=== PATIENT | female | born 1950 | race Caucasian/White ===

== ENCOUNTER 2019-04-02 09:21 | Emergency (ER) | payer MEDICARE, MEDICAID ==
[~2019-04-02] VITALS: Ht 165.1 cm; Wt 80.0 kg
[2019-04-02] MEDS ORDERED: ALPR1TAB2 PO (09:38)
[2019-04-02] MEDS ORDERED: ALBUTEROL/IPRATROPIUM 2.5MG/0.5MG, 3 ML NPPB ONE (10:00)
[2019-04-02] MEDS ORDERED: ALBUTEROL/IPRATROPIUM 2.5MG/0.5MG, 3 ML ONE (10:06)
[2019-04-02] MEDS ORDERED: ACET1TAB64 PO (10:11)
[2019-04-02] MEDS ORDERED: CITA20TA6 PO (10:12)
[2019-04-02] MEDS ORDERED: ALBU90AE INH (10:12)
[2019-04-02] MEDS ORDERED: BUDE10.22 INH (10:13)
[2019-04-02] MEDS ORDERED: METO-93 PO (10:13)
[2019-04-02] MEDS ORDERED: ALPR-475 PO (10:14)
[2019-04-02 10:28] LABS: BASOPHILS # (AUTO) 0.04 x10^3/uL (0-0.1); BASOPHILS % (AUTO) 0 % (0-1); EOSINOPHILS # (AUTO) 0.09 x10^3/uL (0-0.4); EOSINOPHILS % (AUTO) 1 % (1-7); LYMPHOCYTES # (AUTO) 0.92 x10^3/uL (1-3.4); LYMPHOCYTES % (AUTO) 10 % (22-44); MD NO; MEAN CORPUSCULAR HEMOGLOBIN 28.7 pg (27.0-34.8); MEAN CORPUSCULAR HGB CONC 32.6 g/dL (32.4-35.8); MEAN CORPUSCULAR VOLUME 88.2 fL (80-100); MONOCYTES # (AUTO) 0.76 x10^3/uL (0.2-0.8); MONOCYTES % (AUTO) 8 % (2-9); NEUTROPHILS % (AUTO) 81 % (42-75); PLATELET COUNT 253 x10^3/uL (130-400); RED BLOOD COUNT 4.71 x10^6/uL (3.82-5.3); RED CELL DISTRIBUTION WIDTH 14.6 % (9.6-15.2)
[2019-04-02 10:36] LABS: ALANINE AMINOTRANSFERASE 36 U/L (12-78); ALBUMIN 3.1 g/dL (3.4-5.0); ANION GAP 11 mmol/L (5-15); CALCIUM 8.5 mg/dL (8.5-10.1); CHLORIDE 106 mmol/L (98-107); CREATININE 0.71 mg/dL (0.55-1.02)
[2019-04-02 10:39] LABS: ALKALINE PHOSPHATASE 67 U/L (45-117); BILIRUBIN,TOTAL 0.6 mg/dL (0.2-1.0); TOTAL PROTEIN 7.1 g/dL (6.4-8.2)
[2019-04-02] MEDS ORDERED: APAP/CODEINE 300/30MG TABLET PO PRN (11:00)
[2019-04-02] MEDS ORDERED: POTASSIUM CHLORIDE 20 MEQ TAB.ER.PRT PO ONE (11:30)
[2019-04-02 12:38] LABS: CLOSTRIDIUM DIFFICILE ANTIGEN NEGATIVE; CLOSTRIDIUM DIFFICILE TOXIN NEGATIVE (Negative)
[2019-04-02] MEDS ORDERED: POTASSIUM CHLORIDE 20 MEQ TAB.ER.PRT ONE (12:41)
[2019-04-02 12:44] VITALS: BP 127/64
--- NOTE | 2019-04-02 13:53 | NUR ---
VEGITARIAN MEAL TRAY PROVIDED. PT SITTING UP IN BED EATING W/O DIFFICULTY. 2ND MEAL TRAY ORDERED FOR TOGO PT STATED THAT SHE HAS NO FOOD IN HER MOTEL ROOM.
--- NOTE | 2019-04-02 14:42 | NUR ---
Patient/Caregiver given discharge instructions and they have confirmed that they understand the instructions. Patient ambulatory with steady gait. Paient fed prior to discharge.
== END 2019-04-02 14:44 | disposition home or self-care (01) ==
LOC: ED 14:36
DX: R19.7 Diarrhea, unspecified (principal); R05 Cough; J44.9 Chronic obstructive pulmonary disease, unspecified; I10 Essential (primary) hypertension; F17.200 Nicotine dependence, unspecified, uncomplicated
CPT/HCPCS: 36415; 71045; 80053; 83690; 83735; 85025; 87324; 94640; 99284; J7620

== ENCOUNTER 2019-05-01 14:21 | Observation (INO) | payer MEDICARE, MEDICAID ==
[~2019-05-01] VITALS: Ht 165.1 cm; Wt 76.8 kg
[~2019-05-01 14:21] MED LIST: ACET1TAB64 PO; ALBU90AE INH; ALPR0.5T7 PO; ALPR1TAB2 PO; ASPI-515 PO; ATOR40TA78 PO; BUDE10.22 INH; CITA20TA6 PO; METF500T17 PO; METO-93 PO; PRED5TAB PO
--- NOTE | 2019-05-01 14:31 | NUR ---
pt bib remsa to ed for general weakness. pt was discharged from [facility] for pna this am and went back to senior living. pt was unable to fill prescriptions (that did not include abx). per ems, senior living staff believed pt was too weak and lethargic to take care of there, so ems was called and pt was transferred back to ed. pt connected to monitors. vss. Dr. Rausch to bs for assessment. awaiting orders.
[2019-05-01] MEDS ORDERED: ALBUTEROL SULFATE 2.5 MG/3 ML NPPB ONE (15:30)
[2019-05-01] MEDS ORDERED: methylPREDNISolone SOD SUCC 125 MG/2 ML IVP ONE (15:30)
[2019-05-01] MEDS ORDERED: SODIUM CHLORIDE FLUSH 10ML SYR IVF ONE (15:30)
[2019-05-01] MEDS ORDERED: ALBUTEROL SULFATE 2.5MG/0.5ML ONE (15:31)
[2019-05-01 15:46] LABS: BASOPHILS # (AUTO) 0.12 x10^3/uL (0-0.1); BASOPHILS % (AUTO) 1 % (0-1); EOSINOPHILS # (AUTO) 0.14 x10^3/uL (0-0.4); EOSINOPHILS % (AUTO) 2 % (1-7); LYMPHOCYTES # (AUTO) 1.22 x10^3/uL (1-3.4); LYMPHOCYTES % (AUTO) 14 % (22-44); MD NO; MEAN CORPUSCULAR HEMOGLOBIN 27.9 pg (27.0-34.8); MEAN CORPUSCULAR HGB CONC 31.7 g/dL (32.4-35.8); MEAN PLATELET VOLUME 7.9 fL (7.4-10.4); MONOCYTES % (AUTO) 8 % (2-9); NEUTROPHILS # (AUTO) 6.72 x10^3/uL (1.8-6.8); NEUTROPHILS % (AUTO) 76 % (42-75); PLATELET COUNT 202 x10^3/uL (130-400); RED CELL DISTRIBUTION WIDTH 15.1 % (9.6-15.2)
[2019-05-01 15:52] LABS: ALBUMIN 3.3 g/dL (3.4-5.0); ANION GAP 9 mmol/L (5-15); CALCIUM 8.9 mg/dL (8.5-10.1); CHLORIDE 107 mmol/L (98-107); CREATININE 0.68 mg/dL (0.55-1.02)
--- NOTE | 2019-05-01 16:15 | NUR ---
Bedside report from Nelda, assumed care. Pt aox4, speaks in full complete sentences, denies pain at this time, PIV placed by EMS tech, no complaints, waiting for room assignment.
[2019-05-01] MEDS ORDERED: methylPREDNISolone SOD SUCC 125 MG/2 ML ONE (16:24)
--- NOTE | 2019-05-01 16:26 | NUR ---
Pt given solumedrol per MD orders, education provided.
[2019-05-01] MEDS ORDERED: ACETAMINOPHEN 500 MG TABLET PO ONE (16:30)
--- NOTE | 2019-05-01 16:33 | NUR ---
Report given to recieving Olena Rosales, tylenol ordered but not given per pt refusal, states anxiety, RN aware.
[2019-05-01 17:09] VITALS: BP 122/87
[2019-05-01] MEDS ORDERED: ONDANSETRON 2MG/ML, 2ML IVPush PRN (18:00)
[2019-05-01] MEDS: ENOXAPARIN 40 MG/0.4 ML SQ SCH (18:06)
[2019-05-01 19:19] VITALS: BP 130/97
[2019-05-01] MEDS: ACETAMINOPHEN 325 MG TABLET PO PRN (22:20)
[2019-05-02 02:05] VITALS: BP 140/89
[2019-05-02 05:28] LABS: CHLORIDE 104 mmol/L (98-107)
[2019-05-02 05:37] LABS: ALANINE AMINOTRANSFERASE 38 U/L (12-78); ALBUMIN 3.5 g/dL (3.4-5.0); ALKALINE PHOSPHATASE 81 U/L (45-117); ANION GAP 7 mmol/L (5-15); BILIRUBIN,TOTAL 0.9 mg/dL (0.2-1.0); CALCIUM 9.4 mg/dL (8.5-10.1); CREATININE 0.72 mg/dL (0.55-1.02); TOTAL PROTEIN 7.5 g/dL (6.4-8.2)
[2019-05-02 05:41] LABS: BASOPHILS % (AUTO) 0 % (0-1); EOSINOPHILS % (AUTO) 0 % (1-7); LYMPHOCYTES # (AUTO) 0.72 x10^3/uL (1-3.4); LYMPHOCYTES % (AUTO) 12 % (22-44); MD NO; MEAN CORPUSCULAR HEMOGLOBIN 28.6 pg (27.0-34.8); MEAN CORPUSCULAR HGB CONC 32.5 g/dL (32.4-35.8); MEAN PLATELET VOLUME 8.6 fL (7.4-10.4); MONOCYTES # (AUTO) 0.09 x10^3/uL (0.2-0.8); MONOCYTES % (AUTO) 1 % (2-9); NEUTROPHILS # (AUTO) 5.13 x10^3/uL (1.8-6.8); NEUTROPHILS % (AUTO) 86 % (42-75); PLATELET COUNT 250 x10^3/uL (130-400); RED BLOOD COUNT 5.01 x10^6/uL (3.82-5.3); RED CELL DISTRIBUTION WIDTH 14.4 % (9.6-15.2)
[2019-05-02 07:53] VITALS: BP 131/89
[2019-05-02] MEDS: ALBUTEROL/IPRATROPIUM 2.5MG/0.5MG, 3 ML NPPB SCH ×2 (09:00→20:49)
[2019-05-02] MEDS: BUDESONIDE 0.5 MG/2 ML INHA NPPB SCH ×2 (09:00→20:49)
[2019-05-02] MEDS: ACETAMINOPHEN 325 MG TABLET PO PRN ×2 (12:16→17:40)
[2019-05-02 13:59] VITALS: BP 120/84
[2019-05-02] MEDS: ENOXAPARIN 40 MG/0.4 ML SQ SCH (17:41)
[2019-05-02 19:15] VITALS: BP 111/79
[2019-05-03 01:46] VITALS: BP 110/77
[2019-05-03] MEDS: ALBUTEROL/IPRATROPIUM 2.5MG/0.5MG, 3 ML NPPB SCH ×3 (06:45→20:59)
[2019-05-03] MEDS: BUDESONIDE 0.5 MG/2 ML INHA NPPB SCH ×3 (06:46→20:59)
[2019-05-03 07:35] VITALS: BP 121/84
[2019-05-03] MEDS: ACETAMINOPHEN 325 MG TABLET PO PRN ×2 (09:34→17:55)
[2019-05-03 13:52] VITALS: BP 118/85
[2019-05-03] MEDS: ENOXAPARIN 40 MG/0.4 ML SQ SCH (17:55)
[2019-05-03 19:33] VITALS: BP 137/87
[2019-05-04 01:02] VITALS: BP 141/88
[2019-05-04] MEDS: ACETAMINOPHEN 325 MG TABLET PO PRN ×4 (06:44→21:31)
[2019-05-04 07:14] VITALS: BP 125/88
[2019-05-04 12:45] VITALS: BP 115/89
[2019-05-04] MEDS: ENOXAPARIN 40 MG/0.4 ML SQ SCH (17:10)
[2019-05-04 18:56] VITALS: BP 147/93
[2019-05-04] MEDS: BUDESONIDE 0.5 MG/2 ML INHA NPPB SCH (19:56)
[2019-05-04] MEDS: ALBUTEROL/IPRATROPIUM 2.5MG/0.5MG, 3 ML NPPB SCH (19:56)
[2019-05-05 01:58] VITALS: BP 144/76
[2019-05-05] MEDS: ACETAMINOPHEN 325 MG TABLET PO PRN ×4 (02:46→21:36)
[2019-05-05 07:19] VITALS: BP 120/87
[2019-05-05] MEDS: BUDESONIDE 0.5 MG/2 ML INHA NPPB SCH ×2 (10:15→21:00)
[2019-05-05] MEDS: ALBUTEROL/IPRATROPIUM 2.5MG/0.5MG, 3 ML NPPB SCH ×2 (10:15→21:00)
[2019-05-05 12:53] VITALS: BP 125/93
[2019-05-05] MEDS: ENOXAPARIN 40 MG/0.4 ML SQ SCH (17:28)
[2019-05-05 19:18] VITALS: BP 120/82
[2019-05-06 01:16] VITALS: BP 116/78
[2019-05-06] MEDS: ACETAMINOPHEN 325 MG TABLET PO PRN ×4 (02:59→20:37)
[2019-05-06] MEDS: BUDESONIDE 0.5 MG/2 ML INHA NPPB SCH ×2 (06:45→21:00)
[2019-05-06] MEDS: ALBUTEROL/IPRATROPIUM 2.5MG/0.5MG, 3 ML NPPB SCH ×2 (06:45→21:00)
[2019-05-06 07:45] VITALS: BP 130/96
[2019-05-06 12:30] VITALS: BP 136/100
[2019-05-06] MEDS: ENOXAPARIN 40 MG/0.4 ML SQ SCH (16:31)
[2019-05-06 19:22] VITALS: BP 137/98
[2019-05-07 01:47] VITALS: BP 129/87
[2019-05-07] MEDS: ALBUTEROL/IPRATROPIUM 2.5MG/0.5MG, 3 ML NPPB SCH ×2 (07:50→20:53)
[2019-05-07] MEDS: BUDESONIDE 0.5 MG/2 ML INHA NPPB SCH ×2 (07:50→20:53)
[2019-05-07] MEDS: ACETAMINOPHEN 325 MG TABLET PO PRN ×3 (08:06→18:38)
[2019-05-07 08:20] VITALS: BP 125/88
[2019-05-07 13:18] VITALS: BP 136/92
[2019-05-07 14:39] VITALS: BP 130/89
[2019-05-07] MEDS: ENOXAPARIN 40 MG/0.4 ML SQ SCH (17:30)
[2019-05-07 19:17] VITALS: BP 141/75
[2019-05-08 01:03] VITALS: BP 112/81
[2019-05-08] MEDS: ACETAMINOPHEN 325 MG TABLET PO PRN ×5 (01:10→20:32)
[2019-05-08 05:15] LABS: ANION GAP 9 mmol/L (5-15); CALCIUM 9.3 mg/dL (8.5-10.1); CHLORIDE 107 mmol/L (98-107)
[2019-05-08 05:17] LABS: CREATININE 0.69 mg/dL (0.55-1.02)
[2019-05-08 07:35] VITALS: BP 118/90
[2019-05-08] MEDS: ALBUTEROL/IPRATROPIUM 2.5MG/0.5MG, 3 ML NPPB SCH ×2 (09:00→19:40)
[2019-05-08] MEDS: BUDESONIDE 0.5 MG/2 ML INHA NPPB SCH ×2 (09:00→19:40)
[2019-05-08 13:39] VITALS: BP 128/92
[2019-05-08] MEDS: ENOXAPARIN 40 MG/0.4 ML SQ SCH (18:48)
[2019-05-08 19:57] VITALS: BP 125/91
[2019-05-08] MEDS: TEMAZEPAM 15 MG CAPSULE PO PRN (22:26)
[2019-05-09] MEDS: ACETAMINOPHEN 325 MG TABLET PO PRN ×4 (00:45→19:36)
[2019-05-09 01:47] VITALS: BP 124/91
[2019-05-09] MEDS: BUDESONIDE 0.5 MG/2 ML INHA NPPB SCH ×3 (07:25→20:06)
[2019-05-09] MEDS: ALBUTEROL/IPRATROPIUM 2.5MG/0.5MG, 3 ML NPPB SCH ×3 (07:25→20:06)
[2019-05-09 07:53] VITALS: BP 122/92
[2019-05-09 12:13] VITALS: BP 129/92
[2019-05-09] MEDS: ENOXAPARIN 40 MG/0.4 ML SQ SCH ×2 (17:15→17:16)
[2019-05-09 19:25] VITALS: BP 130/96
[2019-05-09] MEDS: TEMAZEPAM 15 MG CAPSULE PO PRN (21:52)
[2019-05-10 01:32] VITALS: BP 119/89
[2019-05-10 07:30] VITALS: BP 118/83
[2019-05-10] MEDS: ACETAMINOPHEN 325 MG TABLET PO PRN ×3 (09:52→20:48)
[2019-05-10 12:33] VITALS: BP 137/89
[2019-05-10] MEDS: ENOXAPARIN 40 MG/0.4 ML SQ SCH (17:55)
[2019-05-10] MEDS: BUDESONIDE 0.5 MG/2 ML INHA NPPB SCH (18:42)
[2019-05-10] MEDS: ALBUTEROL/IPRATROPIUM 2.5MG/0.5MG, 3 ML NPPB SCH (18:42)
[2019-05-10 19:25] VITALS: BP 124/92
[2019-05-10] MEDS: TEMAZEPAM 15 MG CAPSULE PO PRN (20:48)
[2019-05-10] MEDS: ONDANSETRON ODT 4 MG PO PRN (20:48)
[2019-05-11 00:32] VITALS: BP 110/79
[2019-05-11 06:56] VITALS: BP 110/77
[2019-05-11] MEDS: ACETAMINOPHEN 325 MG TABLET PO PRN ×4 (07:33→20:11)
[2019-05-11] MEDS: ALBUTEROL/IPRATROPIUM 2.5MG/0.5MG, 3 ML NPPB SCH ×2 (07:56→19:58)
[2019-05-11] MEDS: BUDESONIDE 0.5 MG/2 ML INHA NPPB SCH ×2 (07:56→19:59)
[2019-05-11 12:43] VITALS: BP 130/86
[2019-05-11] MEDS: ONDANSETRON ODT 4 MG PO PRN ×2 (16:10→20:11)
[2019-05-11] MEDS: ENOXAPARIN 40 MG/0.4 ML SQ SCH (16:50)
[2019-05-11 19:17] VITALS: BP 125/92
[2019-05-11] MEDS: TEMAZEPAM 15 MG CAPSULE PO PRN (21:29)
[2019-05-12 02:22] VITALS: BP 121/87
[2019-05-12] MEDS: ACETAMINOPHEN 325 MG TABLET PO PRN ×5 (03:33→20:49)
[2019-05-12 06:59] VITALS: BP 133/87
[2019-05-12] MEDS: BUDESONIDE 0.5 MG/2 ML INHA NPPB SCH ×2 (08:10→18:56)
[2019-05-12] MEDS: ALBUTEROL/IPRATROPIUM 2.5MG/0.5MG, 3 ML NPPB SCH ×2 (08:10→18:56)
[2019-05-12] MEDS: ONDANSETRON ODT 4 MG PO PRN (13:57)
[2019-05-12 14:00] VITALS: BP 126/90
[2019-05-12] MEDS: ENOXAPARIN 40 MG/0.4 ML SQ SCH (16:41)
[2019-05-12 19:20] VITALS: BP 123/92
[2019-05-12] MEDS: TEMAZEPAM 15 MG CAPSULE PO PRN (20:49)
[2019-05-13 02:25] VITALS: BP 126/94
[2019-05-13] MEDS: ALBUTEROL/IPRATROPIUM 2.5MG/0.5MG, 3 ML NPPB SCH ×2 (06:39→20:00)
[2019-05-13] MEDS: BUDESONIDE 0.5 MG/2 ML INHA NPPB SCH ×2 (06:39→20:00)
[2019-05-13 07:15] VITALS: BP 116/82
[2019-05-13] MEDS: ACETAMINOPHEN 325 MG TABLET PO PRN ×4 (08:23→21:21)
[2019-05-13 14:55] VITALS: BP 108/61
[2019-05-13] MEDS: ENOXAPARIN 40 MG/0.4 ML SQ SCH (17:24)
[2019-05-13 19:02] VITALS: BP 132/89
[2019-05-13] MEDS: ONDANSETRON ODT 4 MG PO PRN (19:37)
[2019-05-13] MEDS: TEMAZEPAM 15 MG CAPSULE PO PRN (21:21)
[2019-05-14 01:21] VITALS: BP 99/70
[2019-05-14] MEDS: BUDESONIDE 0.5 MG/2 ML INHA NPPB SCH ×2 (06:30→20:14)
[2019-05-14] MEDS: ALBUTEROL/IPRATROPIUM 2.5MG/0.5MG, 3 ML NPPB SCH ×2 (06:30→20:14)
[2019-05-14] MEDS: ACETAMINOPHEN 325 MG TABLET PO PRN ×4 (07:54→20:56)
[2019-05-14 08:15] VITALS: BP 125/87
[2019-05-14 13:07] VITALS: BP 129/94
[2019-05-14] MEDS: ENOXAPARIN 40 MG/0.4 ML SQ SCH (16:57)
[2019-05-14 19:18] VITALS: BP 118/81
[2019-05-14] MEDS: TEMAZEPAM 15 MG CAPSULE PO PRN (20:55)
[2019-05-15] VITALS (7 sets, daily range): BP systolic 106–169; BP diastolic 76–111
[2019-05-15] MEDS: ACETAMINOPHEN 325 MG TABLET PO PRN (08:56)
[2019-05-15] MEDS: BUDESONIDE 0.5 MG/2 ML INHA NPPB SCH ×2 (09:00→21:20)
[2019-05-15] MEDS: ALBUTEROL/IPRATROPIUM 2.5MG/0.5MG, 3 ML NPPB SCH ×2 (09:00→21:20)
[2019-05-15] MEDS ORDERED: METO-264 PO (09:01)
[2019-05-15] MEDS ORDERED: METOPROLOL TARTRATE 50 MG TABLET PO SCH (09:30)
[2019-05-15] MEDS: APAP/CODEINE 300/30MG TABLET PO PRN ×2 (15:08→21:09)
[2019-05-15] MEDS: ENOXAPARIN 40 MG/0.4 ML SQ SCH (18:09)
[2019-05-15] MEDS: METOPROLOL TARTRATE 50 MG TABLET PO SCH (21:09)
[2019-05-15] MEDS: ZOLPIDEM 5MG TABLET PO PRN (21:44)
[2019-05-16 02:45] VITALS: BP 100/70
[2019-05-16] MEDS: APAP/CODEINE 300/30MG TABLET PO PRN ×3 (04:05→16:58)
[2019-05-16 08:30] VITALS: BP 150/85
[2019-05-16] MEDS: ALBUTEROL/IPRATROPIUM 2.5MG/0.5MG, 3 ML NPPB SCH ×2 (09:00→21:00)
[2019-05-16] MEDS: BUDESONIDE 0.5 MG/2 ML INHA NPPB SCH ×2 (09:00→21:00)
[2019-05-16] MEDS: ONDANSETRON ODT 4 MG PO PRN ×2 (09:26→18:24)
[2019-05-16] MEDS: METOPROLOL TARTRATE 50 MG TABLET PO SCH ×2 (10:29→20:33)
[2019-05-16 13:23] VITALS: BP 121/84
[2019-05-16] MEDS: ENOXAPARIN 40 MG/0.4 ML SQ SCH (18:00)
[2019-05-16 19:19] VITALS: BP 113/82
[2019-05-16] MEDS: ACETAMINOPHEN 325 MG TABLET PO PRN (20:33)
[2019-05-16] MEDS: ZOLPIDEM 5MG TABLET PO PRN (20:33)
[2019-05-17 01:30] VITALS: BP 106/77
[2019-05-17 07:39] VITALS: BP 113/82
[2019-05-17] MEDS: BUDESONIDE 0.5 MG/2 ML INHA NPPB SCH ×2 (08:00→21:10)
[2019-05-17] MEDS: ALBUTEROL/IPRATROPIUM 2.5MG/0.5MG, 3 ML NPPB SCH ×2 (08:00→21:10)
[2019-05-17] MEDS: METOPROLOL TARTRATE 50 MG TABLET PO SCH ×2 (08:46→20:32)
[2019-05-17] MEDS: APAP/CODEINE 300/30MG TABLET PO PRN ×3 (08:46→21:42)
[2019-05-17 13:42] VITALS: BP 117/84
[2019-05-17] MEDS: ENOXAPARIN 40 MG/0.4 ML SQ SCH (18:18)
[2019-05-17 19:54] VITALS: BP 110/80
[2019-05-17] MEDS: ZOLPIDEM 5MG TABLET PO PRN (20:32)
[2019-05-18 01:45] VITALS: BP 94/67
[2019-05-18] MEDS: ACETAMINOPHEN 325 MG TABLET PO PRN (05:48)
[2019-05-18 07:25] VITALS: BP 105/77
[2019-05-18] MEDS: METOPROLOL TARTRATE 50 MG TABLET PO SCH ×2 (08:25→21:27)
[2019-05-18] MEDS: APAP/CODEINE 300/30MG TABLET PO PRN ×3 (08:25→21:25)
[2019-05-18] MEDS: ALBUTEROL/IPRATROPIUM 2.5MG/0.5MG, 3 ML NPPB SCH ×2 (09:20→21:00)
[2019-05-18] MEDS: BUDESONIDE 0.5 MG/2 ML INHA NPPB SCH ×2 (09:20→21:00)
[2019-05-18 13:59] VITALS: BP 141/83
[2019-05-18] MEDS: ENOXAPARIN 40 MG/0.4 ML SQ SCH (17:05)
[2019-05-18 18:35] VITALS: BP 116/85
[2019-05-18 21:27] VITALS: BP 120/83
[2019-05-18] MEDS: ZOLPIDEM 5MG TABLET PO PRN (21:29)
[2019-05-19 02:06] VITALS: BP 110/85
[2019-05-19 07:01] VITALS: BP 101/77
[2019-05-19] MEDS: APAP/CODEINE 300/30MG TABLET PO PRN ×3 (07:22→20:37)
[2019-05-19] MEDS: METOPROLOL TARTRATE 50 MG TABLET PO SCH ×2 (07:22→20:29)
[2019-05-19] MEDS: ALBUTEROL/IPRATROPIUM 2.5MG/0.5MG, 3 ML NPPB SCH ×2 (12:36→20:44)
[2019-05-19] MEDS: BUDESONIDE 0.5 MG/2 ML INHA NPPB SCH ×2 (12:36→20:44)
[2019-05-19 12:50] VITALS: BP 91/63
[2019-05-19 13:04] VITALS: BP 116/84
[2019-05-19] MEDS: ACETAMINOPHEN 325 MG TABLET PO PRN (17:28)
[2019-05-19] MEDS: ENOXAPARIN 40 MG/0.4 ML SQ SCH (17:29)
[2019-05-19 19:41] VITALS: BP 114/85
[2019-05-19] MEDS: ZOLPIDEM 5MG TABLET PO PRN (21:40)
[2019-05-20 01:44] VITALS: BP 103/69
[2019-05-20 06:49] VITALS: BP 103/72
[2019-05-20] MEDS: METOPROLOL TARTRATE 50 MG TABLET PO SCH ×2 (07:56→20:14)
[2019-05-20] MEDS: APAP/CODEINE 300/30MG TABLET PO PRN ×3 (08:04→20:14)
[2019-05-20] MEDS: BUDESONIDE 0.5 MG/2 ML INHA NPPB SCH ×2 (09:00→20:23)
[2019-05-20] MEDS: ALBUTEROL/IPRATROPIUM 2.5MG/0.5MG, 3 ML NPPB SCH ×2 (09:00→20:22)
[2019-05-20 14:00] VITALS: BP 116/70
[2019-05-20] MEDS: ENOXAPARIN 40 MG/0.4 ML SQ SCH (17:24)
[2019-05-20] MEDS: ACETAMINOPHEN 325 MG TABLET PO PRN (17:44)
[2019-05-20 19:41] VITALS: BP 133/86
[2019-05-21 01:33] VITALS: BP 110/78
[2019-05-21] MEDS: APAP/CODEINE 300/30MG TABLET PO PRN ×3 (05:58→21:48)
[2019-05-21 08:01] VITALS: BP 91/70
[2019-05-21] MEDS: METOPROLOL TARTRATE 50 MG TABLET PO SCH ×2 (09:00→20:45)
[2019-05-21] MEDS: BUDESONIDE 0.5 MG/2 ML INHA NPPB SCH ×2 (09:40→21:00)
[2019-05-21] MEDS: ALBUTEROL/IPRATROPIUM 2.5MG/0.5MG, 3 ML NPPB SCH ×2 (09:40→21:00)
[2019-05-21] MEDS: LIDODERM 5% PATCH TD SCH (09:49)
[2019-05-21 13:33] VITALS: BP 113/79
[2019-05-21] MEDS: ONDANSETRON ODT 4 MG PO PRN (13:52)
[2019-05-21] MEDS: ACETAMINOPHEN 325 MG TABLET PO PRN ×2 (13:52→20:45)
[2019-05-21] MEDS: ENOXAPARIN 40 MG/0.4 ML SQ SCH (18:00)
[2019-05-21 19:19] VITALS: BP 138/84
[2019-05-21] MEDS: ZOLPIDEM 5MG TABLET PO PRN (20:45)
[2019-05-22 01:06] VITALS: BP 114/75
[2019-05-22] MEDS: APAP/CODEINE 300/30MG TABLET PO PRN ×4 (04:07→23:11)
[2019-05-22 08:13] VITALS: BP 102/72
[2019-05-22] MEDS: ACETAMINOPHEN 325 MG TABLET PO PRN (09:11)
[2019-05-22] MEDS: ALBUTEROL/IPRATROPIUM 2.5MG/0.5MG, 3 ML NPPB SCH ×2 (09:32→21:00)
[2019-05-22] MEDS: BUDESONIDE 0.5 MG/2 ML INHA NPPB SCH ×2 (09:32→21:00)
[2019-05-22] MEDS: METOPROLOL TARTRATE 50 MG TABLET PO SCH ×2 (09:49→20:28)
[2019-05-22] MEDS: LIDODERM 5% PATCH TD SCH (09:50)
[2019-05-22] MEDS: ONDANSETRON ODT 4 MG PO PRN ×2 (09:53→17:57)
[2019-05-22 12:56] VITALS: BP 147/85
[2019-05-22] MEDS: IBUPROFEN 200 MG TABLET PO PRN ×2 (14:34→20:27)
[2019-05-22] MEDS: ENOXAPARIN 40 MG/0.4 ML SQ SCH (17:57)
[2019-05-22 19:14] VITALS: BP 111/79
[2019-05-22] MEDS: ZOLPIDEM 5MG TABLET PO PRN (20:27)
[2019-05-23 01:14] VITALS: BP 126/78
[2019-05-23 07:48] VITALS: BP 145/84
[2019-05-23] MEDS: METOPROLOL TARTRATE 50 MG TABLET PO SCH ×2 (08:23→21:09)
[2019-05-23] MEDS: APAP/CODEINE 300/30MG TABLET PO PRN ×3 (08:23→21:09)
[2019-05-23] MEDS: LIDODERM 5% PATCH TD SCH (08:23)
[2019-05-23] MEDS: ALBUTEROL/IPRATROPIUM 2.5MG/0.5MG, 3 ML NPPB SCH ×2 (10:25→20:17)
[2019-05-23] MEDS: BUDESONIDE 0.5 MG/2 ML INHA NPPB SCH ×2 (10:25→20:17)
[2019-05-23] MEDS: IBUPROFEN 200 MG TABLET PO PRN ×2 (11:16→20:11)
[2019-05-23 14:28] VITALS: BP 152/83
[2019-05-23] MEDS: ENOXAPARIN 40 MG/0.4 ML SQ SCH (18:00)
[2019-05-23 19:43] VITALS: BP 149/97
[2019-05-23] MEDS: TEMAZEPAM 15 MG CAPSULE PO PRN (21:09)
[2019-05-24 01:42] VITALS: BP 122/87
[2019-05-24] MEDS: APAP/CODEINE 300/30MG TABLET PO PRN ×3 (04:21→20:49)
[2019-05-24 05:50] LABS: ANION GAP 6 mmol/L (5-15); CALCIUM 8.9 mg/dL (8.5-10.1); CHLORIDE 108 mmol/L (98-107)
[2019-05-24 05:54] LABS: ALANINE AMINOTRANSFERASE 23 U/L (12-78); ALKALINE PHOSPHATASE 77 U/L (45-117); CREATININE 0.66 mg/dL (0.55-1.02); TOTAL PROTEIN 6.5 g/dL (6.4-8.2)
[2019-05-24 05:59] LABS: BASOPHILS # (AUTO) 0.03 x10^3/uL (0-0.1); BASOPHILS % (AUTO) 0 % (0-1); EOSINOPHILS # (AUTO) 0.12 x10^3/uL (0-0.4); EOSINOPHILS % (AUTO) 2 % (1-7); LYMPHOCYTES # (AUTO) 1.84 x10^3/uL (1-3.4); LYMPHOCYTES % (AUTO) 31 % (22-44); MD NO; MEAN CORPUSCULAR HEMOGLOBIN 29.1 pg (27.0-34.8); MEAN CORPUSCULAR HGB CONC 32.9 g/dL (32.4-35.8); MEAN CORPUSCULAR VOLUME 88.4 fL (80-100); MEAN PLATELET VOLUME 8.4 fL (7.4-10.4); MONOCYTES # (AUTO) 0.68 x10^3/uL (0.2-0.8); MONOCYTES % (AUTO) 11 % (2-9); NEUTROPHILS # (AUTO) 3.36 x10^3/uL (1.8-6.8); NEUTROPHILS % (AUTO) 56 % (42-75); PLATELET COUNT 235 x10^3/uL (130-400); RED BLOOD COUNT 4.27 x10^6/uL (3.82-5.3); RED CELL DISTRIBUTION WIDTH 15.4 % (9.6-15.2)
[2019-05-24 07:34] VITALS: BP 144/82
[2019-05-24] MEDS: BUDESONIDE 0.5 MG/2 ML INHA NPPB SCH ×2 (08:50→19:46)
[2019-05-24] MEDS: ALBUTEROL/IPRATROPIUM 2.5MG/0.5MG, 3 ML NPPB SCH ×2 (08:50→19:46)
[2019-05-24] MEDS: METOPROLOL TARTRATE 50 MG TABLET PO SCH ×2 (08:58→20:49)
[2019-05-24] MEDS: ONDANSETRON ODT 4 MG PO PRN (08:58)
[2019-05-24] MEDS: LIDODERM 5% PATCH TD SCH (08:59)
[2019-05-24] MEDS: IBUPROFEN 200 MG TABLET PO PRN ×2 (08:59→17:30)
[2019-05-24] MEDS ORDERED: CEFTRIAXONE PMX 2GM/50ML 50 ML IV SCH (11:00)
[2019-05-24] MEDS: CEFDINIR 300 MG CAPSULE PO SCH ×2 (11:19→20:49)
[2019-05-24 12:54] VITALS: BP 151/84
[2019-05-24] MEDS: ENOXAPARIN 40 MG/0.4 ML SQ SCH (18:00)
[2019-05-24 19:43] VITALS: BP 147/87
[2019-05-24] MEDS: DOXYCYCLINE 100MG CAP PO SCH (20:49)
[2019-05-24] MEDS: TEMAZEPAM 15 MG CAPSULE PO PRN (20:51)
[2019-05-25 01:43] VITALS: BP 89/54
[2019-05-25 01:50] VITALS: BP 116/69
[2019-05-25] MEDS: APAP/CODEINE 300/30MG TABLET PO PRN ×3 (03:48→21:16)
[2019-05-25 08:11] VITALS: BP 138/78
[2019-05-25] MEDS: DOXYCYCLINE 100MG CAP PO SCH ×2 (08:33→21:16)
[2019-05-25] MEDS: METOPROLOL TARTRATE 50 MG TABLET PO SCH ×2 (08:33→21:16)
[2019-05-25] MEDS: CEFDINIR 300 MG CAPSULE PO SCH (08:33)
[2019-05-25] MEDS: LIDODERM 5% PATCH TD SCH (08:33)
[2019-05-25] MEDS: BUDESONIDE 0.5 MG/2 ML INHA NPPB SCH ×2 (08:55→20:44)
[2019-05-25] MEDS: ALBUTEROL/IPRATROPIUM 2.5MG/0.5MG, 3 ML NPPB SCH ×2 (08:55→20:44)
[2019-05-25 12:45] VITALS: BP_SYST 2
[2019-05-25 13:36] VITALS: BP 156/88
[2019-05-25] MEDS: ACETAMINOPHEN 325 MG TABLET PO PRN (17:41)
[2019-05-25] MEDS: ENOXAPARIN 40 MG/0.4 ML SQ SCH (18:00)
[2019-05-25] MEDS: ONDANSETRON ODT 4 MG PO PRN (19:03)
[2019-05-25 19:50] VITALS: BP 130/80
[2019-05-25] MEDS: TEMAZEPAM 15 MG CAPSULE PO PRN (21:16)
[2019-05-26 00:55] VITALS: BP 115/67
[2019-05-26 07:58] VITALS: BP 134/86
[2019-05-26] MEDS: DOXYCYCLINE 100MG CAP PO SCH (08:01)
[2019-05-26] MEDS: APAP/CODEINE 300/30MG TABLET PO PRN ×2 (08:02→14:51)
[2019-05-26] MEDS: METOPROLOL TARTRATE 50 MG TABLET PO SCH (08:02)
[2019-05-26] MEDS ORDERED: METO50TA82 PO (08:23)
[2019-05-26] MEDS ORDERED: LIDO700A20 TD (08:23)
[2019-05-26] MEDS ORDERED: IPRA3AMP30 NPPB (08:23)
[2019-05-26] MEDS ORDERED: BUDE0.5A NPPB (08:23)
[2019-05-26] MEDS ORDERED: PRED20TA PO (08:23)
[2019-05-26] MEDS: ONDANSETRON ODT 4 MG PO PRN ×2 (08:47→12:49)
[2019-05-26] MEDS: BUDESONIDE 0.5 MG/2 ML INHA NPPB SCH (09:45)
[2019-05-26] MEDS: ALBUTEROL/IPRATROPIUM 2.5MG/0.5MG, 3 ML NPPB SCH (09:45)
[2019-05-26] MEDS: ACETAMINOPHEN 325 MG TABLET PO PRN (12:26)
[2019-05-26 15:18] VITALS: BP 147/79
== END 2019-05-26 18:30 ==
LOC: ED 15:33 → INTOOBSV 15:52 → 3NE 15:52
PROVIDERS: ADMIT Internal Medicine; ATTEND Internal Medicine
DX: R62.7 Adult failure to thrive (principal); J44.1 Chronic obstructive pulmonary disease with (acute) exacerbation; J96.21 Acute and chronic respiratory failure with hypoxia; I10 Essential (primary) hypertension; H81.10 Benign paroxysmal vertigo, unspecified ear; K58.9 Irritable bowel syndrome, unspecified; E88.09 Other disorders of plasma-protein metabolism, not elsewhere classified; E78.5 Hyperlipidemia, unspecified; F43.22 Adjustment disorder with anxiety; E27.40 Unspecified adrenocortical insufficiency; J18.9 Pneumonia, unspecified organism; Z91.11 Patient's noncompliance with dietary regimen; Z91.19 Patient's noncompliance with other medical treatment and regimen; Z99.81 Dependence on supplemental oxygen; Z86.73 Personal history of transient ischemic attack (TIA), and cerebral infarction without residual deficits
CPT/HCPCS: 36415; 71045; 73030; 80048; 80053; 82040; 84145; 85025; 94640; 96372; 96374; 97161; 97166; 97530; 97535; 99284; G0378; J1650; J2930; J7512; J7613; J7620; J7626; Q0162